=== PATIENT | female | born 1980 | race Caucasian/White ===

== ENCOUNTER 2019-11-20 08:10 | Day surgery (SDC) | payer BC ==
[~2019-11-20] VITALS: Ht 157.5 cm; Wt 99.8 kg
[2019-11-20 08:54] LABS: HCG,QUAL RESULT NEGATIVE (NEGATIVE)
[2019-11-20] MEDS ORDERED: CEFAZOLIN SOD 1 GM in D5W 50 ML IV ONE (09:00)
[2019-11-20] MEDS ORDERED: METOCLOPRAMIDE HCL 10 MG/2 ML VIAL ONE (12:05)
[2019-11-20] MEDS ORDERED: GLYCOPYRROLATE 0.2 MG/ML VIAL ONE (12:05)
[2019-11-20] MEDS ORDERED: NS 1000 ML IV.SOLN IV ONE (12:05)
[2019-11-20] MEDS ORDERED: NS IRRIG SOLN 1000 ML IR ONE (12:05)
[2019-11-20] MEDS ORDERED: NEOSTIGMINE METHYLSULFATE 1 MG/ML, 10 ML VIAL ONE (12:05)
[2019-11-20] MEDS ORDERED: fentaNYL CITRATE 250 MCG/5 ML AMP ONE (12:05)
[2019-11-20] MEDS ORDERED: SEVOFLURANE 15 MIN GAS INH ONE (12:05)
[2019-11-20] MEDS ORDERED: LR 1,000 ML IV.SOLN IV ONE (12:05)
[2019-11-20] MEDS ORDERED: MIDAZOLAM HCL 5 MG/ML VIAL (VERSED) IV ONE (12:05)
[2019-11-20] MEDS ORDERED: ROCURONIUM BROMIDE 10 MG/ML (ZEMURON) ONE (12:05)
[2019-11-20] MEDS ORDERED: ONDANSETRON HCL 4 MG/2 ML VIAL ONE (12:05)
[2019-11-20] MEDS: HYDROmorphone 1 MG INJ. 1 MG/ML AMPUL IVP PRN ×2 (12:08→12:20)
[2019-11-20] MEDS ORDERED: HYDROmorphone 1 MG INJ. 1 MG/ML AMPUL IVP PRN (12:15)
[2019-11-20] MEDS ORDERED: KETOROLAC TROMETHAMINE 30 MG VIAL IVP PRN ×3 (12:15)
[2019-11-20] MEDS ORDERED: ONDANSETRON HCL 4 MG/2 ML VIAL IVP PRN (12:15)
[2019-11-20] MEDS ORDERED: HYDROmorphone 2 MG/ML VIAL IVP PRN (12:15)
[2019-11-20] MEDS ORDERED: HYDROmorphone 1 MG INJ. 1 MG/ML AMPUL ONE ×2 (12:20→14:28)
[2019-11-20] MEDS ORDERED: HYDROcodone/ACETAMIN 5-325 MG TAB (NORCO/ VICODIN) PO ONE (14:00)
[2019-11-20] MEDS ORDERED: HYDROcodone/ACETAMIN 5-325 MG TAB (NORCO/ VICODIN) ONE (14:05)
[2019-11-20 14:40] VITALS: BP_SYST 115
== END 2019-11-20 15:09 | disposition home or self-care (01) ==
LOC: SDS 08:10 → SMU 08:14 → SDS 15:09
PROVIDERS: ATTEND Surgery
DX: K80.10 Calculus of gallbladder with chronic cholecystitis without obstruction (principal); E66.01 Morbid (severe) obesity due to excess calories; K40.90 Unilateral inguinal hernia, without obstruction or gangrene, not specified as recurrent; G43.909 Migraine, unspecified, not intractable, without status migrainosus
CPT/HCPCS: 47562; 84703; 88304; C1727; J0690; J1170; J2250; J2405; J2710; J2765; J3010; J3490; J7030; J7060; J7120